=== PATIENT | female | born 1965 | race Caucasian/White ===

== ENCOUNTER 2023-11-18 01:30 | Emergency (ER) | payer MEDICAID, SELFPAY ==
[2023-11-18] VITALS (7 sets, daily range): BP systolic 112–140; BP diastolic 59–75; PULSE 72–88; RESP 18; TEMP 36.8; O2SAT 94–99
--- NOTE | 2023-11-18 01:37 | XRR_ITS ---
PROCEDURE INFORMATION: Exam: XR Left Wrist Exam date and time: 11/18/2023 1:59 AM Age: 58 years old Clinical indication: Injury or trauma; Fall; Other: Pain; Additional info: Fall, wrist pain TECHNIQUE: Imaging protocol: Radiologic exam of the left wrist. Views: 3 or more views. COMPARISON: No relevant prior studies available. FINDINGS: Bones/joints: Normal mineralization and alignment. No evidence of acute fracture or dislocation. Soft tissues: The soft tissues are within normal limits. XR/XR wrist LT min 3V* [id number] IMPRESSION: No evidence of acute fracture or dislocation.
--- NOTE | 2023-11-18 01:37 | XRR_ITS ---
PROCEDURE INFORMATION: Exam: XR Left Elbow Exam date and time: 11/18/2023 2:04 AM Age: 58 years old Clinical indication: Injury or trauma; Fall; Other: Pain; Additional info: Fall, elbow pain TECHNIQUE: Imaging protocol: Radiologic exam of the left elbow. Views: 3 or more views. COMPARISON: CR (UP EXM, ) 11/18/2023 2:01 AM FINDINGS: Bones/joints: Normal mineralization and alignment. No evidence of acute fracture or dislocation. No joint effusion Soft tissues: The soft tissues are within normal limits. XR/XR elbow LT min 3V* [id number] IMPRESSION: No evidence of acute fracture or dislocation.
--- NOTE | 2023-11-18 01:37 | XRR_ITS ---
PROCEDURE INFORMATION: Exam: XR Left Forearm Exam date and time: 11/18/2023 2:01 AM Age: 58 years old Clinical indication: Injury or trauma; Fall; Other: Pain; Additional info: Fall, arm pain TECHNIQUE: Imaging protocol: Radiologic exam of the left forearm. Views: 2 views. COMPARISON: CR (UP EXM, ) 11/18/2023 1:59 AM FINDINGS: Bones/joints: Normal mineralization and alignment. No evidence of acute fracture or dislocation. Questionable soft tissue abnormality on the volar surface of the forearm which should be correlated with physical exam. No elbow joint effusion seen. Soft tissues: See Bones/joints finding. XR/XR forearm LT 2V [id number] IMPRESSION: No evidence of acute fracture or dislocation.
--- NOTE | 2023-11-18 01:37 | CTR_ITS ---
PROCEDURE INFORMATION: Exam: CT Maxillofacial Without Contrast Exam date and time: 11/18/2023 1:48 AM Age: 58 years old Clinical indication: Injury or trauma; Fall; Other: Pain; Additional info: Trauamatic facial pain TECHNIQUE: Imaging protocol: Computed tomography of the face without contrast. Radiation optimization: All CT scans at this facility use at least one of these dose optimization techniques: automated exposure control; mA and/or kV adjustment per patient size (includes targeted exams where dose is matched to clinical indication); or iterative reconstruction. COMPARISON: CT head wo con* [id number] 11/18/2023 1:48 AM RADIATION DOSE METRICS: Total DLP (mGy-cm): 598.1 FINDINGS: Orbital cavities: Orbits are normal. Globes are unremarkable. Paranasal sinuses: Normal. No air-fluid levels. Bones: No evidence of facial fracture. Soft tissues: Moderate right supraorbital soft tissue swelling. CT/CT facial bones wo con* [id number] IMPRESSION: No evidence of facial fracture.
--- NOTE | 2023-11-18 01:37 | CTR_ITS ---
PROCEDURE INFORMATION: Exam: CT Head Without Contrast Exam date and time: 11/18/2023 1:48 AM Age: 58 years old Clinical indication: Injury or trauma; Fall; Other: Pain; Additional info: Fall, head injury TECHNIQUE: Imaging protocol: Computed tomography of the head without contrast. Radiation optimization: All CT scans at this facility use at least one of these dose optimization techniques: automated exposure control; mA and/or kV adjustment per patient size (includes targeted exams where dose is matched to clinical indication); or iterative reconstruction. COMPARISON: MR head wo/w con [id number] 12/22/2018 12:12 PM RADIATION DOSE METRICS: Total DLP (mGy-cm): 885.2 FINDINGS: Brain: There is mild cerebral atrophy. There are mild deep white matter microangiopathic ischemic changes. No acute hemorrhage is identified. No mass or mass effect is identified. Moderate [id number]-[id number]-prbv-left frontal encephalomalacia, stable compared to prior MRs. Cerebral ventricles: The ventricles are prominent secondary to atrophy. Paranasal sinuses: The paranasal sinuses are clear. Mastoid air cells: The mastoid air cells are clear. Bones: No acute osseous abnormalities are seen. Soft tissues: Moderate right periorbital soft tissue swelling. CT/CT head wo con* [id number] IMPRESSION: 1. No acute intracranial pathology. 2. Senescent changes.
--- NOTE | 2023-11-18 01:39 | ED_ITS ---
HPI - Seizure 2 General: Chief Complaint: Seizure Stated Complaint: SEIZURE Time Seen by Provider: 11/18/23 01:32 History of Present Illness: HPI Narrative: 58-year-old female with a history of sei zure disorder who presents to the emergency room after having a seizure tonight. Says this happens occasionally. Said it was a brief seizure. She fell. Hit her head. She has pain on her left forehead and cheek. She is on a blood thinner. She also has pain in her left arm from her elbow to her wrist. Some bruising around her wrist. Currently she has no altered mental status. No focal motor deficits. No increased work of breathing. No shortness of breath. No chest pain. No abdominal pain. No nausea or vomiting. No recent cough or fevers. Review of Systems 2 Narrative: Constitutional symptoms: Negative except as documented in HPI. Skin symptoms: Negative except as documented in HPI. Eye symptoms: Negative except as documented in HPI. ENMT symptoms: Negative except as documented in HPI. Respiratory symptoms: Negative except as documented in HPI. Cardiovascular symptoms: Negative except as documented in HPI. Gastrointestinal symptoms: Negative except as documented in HPI. Genitourinary symptoms: Negative except as documented in HPI. Musculoskeletal symptoms: Negative except as documented in HPI. Neurologic symptoms: Negative except as documented in HPI. Psychiatric symptoms: Negative except as documented in HPI. Endocrine symptoms: Negative except as documented in HPI. Physical Exam 2 Narrative: EXAM NARRATIVE: General: Alert, no acute distress. Skin: Warm, dry. Head: Normocephalic, bruising of the right forehead and right cheek. Neck: Supple, trachea midline. Eye: Extraocular movements are intact. Ears, nose, mouth and throat: mucosa moist. Cardiovascular: Regular, Normal peripheral perfusion. Respiratory: Lungs are clear to auscultation, respirations are non-labored, breath sounds are equal, Symmetrical chest wall expansion. Gastrointestinal: Soft, Nontender, Non distended, Normal bowel sounds. Musculoskeletal: No obvious deformity but she does have some swelling of her left wrist and elbow. Neurological: Alert and oriented, No focal neurological deficit observed. Psychiatric: Cooperative, appropriate mood & affect. Course 2 Vital Signs: Vital signs: Vital Signs Temperature 98.2 F 11/18/23 01:32 Pulse Rate 77 11/18/23 01:32 Respiratory Rate 18 06/06/24 01:32 Blood Pressure 140/75 06/06/24 01:32 Pulse Oximetry 98 11/18/23 01:32 Oxygen Delivery Me thod Room Air 11/18/23 01:32 MDM - Seizure MDM Narrative Medical decision making narrative: Medical decision making: Differential diagnosis for this patient with a complaint of seizure like activity would include but not be limited to, and based on the above HPI, review of systems and physical exam: seizure, DT's, alcohol withdrawal, brain malignancy, pseudo-seizure, syncope. Orders placed to evaluate differential diagnosis based on the above differential, HPI and physical exam Lab Review: Laboratory results were reviewed and interpreted by myself the emergency room physician Patient has mild lactic acidosis. Otherwise lab work is fairly normal. This to be expected with a seizure. I reviewed the patient's medical record. Reexamination: Patient remained stable. No further seizure activities. No altered mental status. No increased work of breathing. CT head: No acute intracranial process. no intracranial hemorrhage, no evidence of infarct. no evidence of acute fracture.This was reviewed and interpreted by myself the ER physician. CT of the facial bones: No evidence of fracture. This was reviewed and interpreted by myself the emergency room physician. I also reviewed the radiology report. X-ray of the elbow, forearm and wrist show no acute fractures or dislocations. This was reviewed and interpreted by myself the emergency room physician. I also reviewed the radiology report. Assessment and plan: Seizure Head injury - Discharged home - Discussed plan with patient. Answered any questions. - Evaluation and treatment of this problem were appropriate in the emergency setting. Lab Data 11/18/23 02:14 11/18/23 02:14 Labs: Radiology Impressions Elbow X-Ray 11/18/23 01:37 IMPRESSION: No evidence of acute fracture or dislocation. Face CT 11/18/23 01:37 IMPRESSION: No evidence of facial fracture. Forearm X-Ray 11/18/23 01:37 IMPRESSION: No evidence of acute fracture or dislocation. Head CT 11/18/23 01:37 IMPRESSION: 1. No acute intracranial pathology. 2. Senescent changes. Wrist X-Ray 11/18/23 01:37 IMPRESSION: No evidence of acute fracture or dislocation. Laboratory Results WBC 6.91 10^3/uL (3.29-11.43) 11/18/23 02:14 RBC 3.20 10^6/uL (3.85-5.65) L 11/18/23 02:14 Hgb 9.00 g/dL (11.27-16.99) L 11/18/23 02:14 Hct 28.3 % (36-47) L 11/18/23 02:14 MCV 88.4 fl (85-98) 11/18/23 02:14 MCH 28.1 pg (27-33) 11/18/23 02:14 MCHC 31.8 g/dL (30-55) 11/18/23 02:14 RDW 14.2 % (12.1-15.1) 11/18/23 02:14 Plt Count 335 10^3/cmm (157-399) 11/18/23 02:14 MPV 8.9 fL (7.4-10.4) 11/18/23 02:14 Neut % (Auto) 40.5 % 11/18/23 02:14 Lymph % (Auto) 48.3 % 11/18/23 02:14 Saunders % (Auto) 8.5 % 11/18/23 02:14 Eos % (Auto) 1.3 % 11/18/23 02:14 Baso % (Auto) 1.0 % 11/18/23 02:14 Neut # (Auto) 2.79 10^3/uL (1.8-7.7) 11/18/23 02:14 Lymph # (Auto) 3.3 10^3/uL (0.8-4.8) 11/18/23 02:14 Saunders # (Auto) 0.6 10^3/uL (0.2-0.9) 11/18/23 02:14 Eos # (Auto) 0.1 10^3/uL (0.0-0.8) 11/18/23 02:14 Baso # (Auto) 0.1 10^3/uL (0.0-0.1) 11/18/23 02:14 Nucleated RBC % (auto) 0 % 11/18/23 02:14 Nucleated RBCs # 0.0 /100WBC 11/18/23 02:14 Sodium 140 mmol/L (136-145) 11/18/23 02:14 Potassium 4.0 mmol/L (3.5-5.1) 11/18/23 02:14 Chloride 101 mmol/L (98-107) 11/18/23 02:14 Carbon Dioxide 24 mmol/L (22-29) 11/18/23 02:14 Anion Gap 19.0 (5-19) 11/18/23 02:14 BUN 18 mg/dL (6-20) 11/18/23 02:14 Creatinine 0.7 mg/dL (0.5-0.9) 11/18/23 02:14 GFR Calculation 86.2 mL/min (90-130) L 11/18/23 02:14 Glucose 203 mg/dL (65-115) H 11/18/23 02:14 Calculated Osmolality 298 mOsm/kg (285-295) H 11/18/23 02:14 Lactic Acid 3.6 mmol/L (0.5-2.2) H 11/18/23 02:14 Calcium 9.2 mg/dL (8.5-10.5) 11/18/23 02:14 Total Bilirubin 0.2 mg/dL (0.15-1.2) 11/18/23 02:14 AST 20 U/L (0-32) 11/18/23 02:14 ALT 19 U/L (0-33) 11/18/23 02:14 Alkaline Phosphatase 46 U/L (35-105) 11/18/23 02:14 Total Protein 6.8 g/dL (6.6-8.7) 11/18/23 02:14 Albumin 4.1 g/dL (3.5-5.2) 11/18/23 02:14 Globulin 2.7 g/dL (1.3-4.6) 11/18/23 02:14 All radiology interpretation(s) finalized by discharge Discharge Plan Discharge Patient Disposition: Home Clinical Impression: Epileptic seizure, Head injury, Wrist strain Condition: Stable Discharge Orders: Discharge ED (Routine); Ordered 11/18/23 Ordered By: Judy Mccormick Referrals: Mehran Chavez [Primary Care Provider] - 4-7 days Discharge Diet: Usual diet Discharge Activity: Increase activity as tolerated Patient Instructions: Epilepsy (ED) Activity Restrictions/Additional Instructions: Thank you for choosing [facility] for your healthcare needs today. Please realize this is an emergency room and that we are providing you with a medical screening exam and this may not be complete and all inclusive of all the testing and or work up that you may need to determine your ailment or severity of your illness. You have been screened and evaluated and felt safe for discharge. Health conditions do change or evolve sometimes and as such it is important that you follow up with your Primary Doctor to be re checked, 3-5 days is a general good time frame for follow up. You are always welcome to return to the ED for re assessment if your symptoms are worsening or you have new concerns Coding Level of Care Code ED [employer] Operator for Rosendo Laurent
[2023-11-18 02:19] LABS: Basophils # 0.1 10^3/uL (0.0-0.1); Eosinophils # 0.1 10^3/uL (0.0-0.8); Eosinophils % 1.3 %; Hematocrit 28.3 % (36-47); Lymphocytes # 3.3 10^3/uL (0.8-4.8); Lymphocytes % 48.3 %; Mean Corpuscular HGB Conc 31.8 g/dL (30-55); Mean Corpuscular Hemoglobin 28.1 pg (27-33); Mean Corpuscular Volume 88.4 fl (85-98); Mean Platelet Volume 8.9 fL (7.4-10.4); Monocytes # 0.6 10^3/uL (0.2-0.9); Monocytes % 8.5 %; Neutrophils # 2.79 10^3/uL (1.8-7.7); Neutrophils % 40.5 %; Nucleated Red Blood Cells % 0 %; Platelet Count 335 10^3/cmm (157-399); Red Cell Distribution Width 14.2 % (12.1-15.1); White Blood Count 6.91 10^3/uL (3.29-11.43)
[2023-11-18 02:43] LABS: Lactic Sepsis W/Reflex 3.6 mmol/L (0.5-2.2)
[2023-11-18 02:44] LABS: Alanine Aminotransferase 19 U/L (0-33); Albumin Level 4.1 g/dL (3.5-5.2); Alkaline Phosphatase 46 U/L (35-105); Aspartate Amino Transferase 20 U/L (0-32); Blood Urea Nitrogen 18 mg/dL (6-20); Calcium 9.2 mg/dL (8.5-10.5); Carbon Dioxide 24 mmol/L (22-29); Chloride 101 mmol/L (98-107); Creatinine Clr Calc Pharmacy 90.3874; Globulin 2.7 g/dL (1.3-4.6); Glomerular Filtration Rate 86.2 mL/min (90-130); Glucose 203 mg/dL (65-115); Osmolality Calculated 298 mOsm/kg (285-295); Sodium 140 mmol/L (136-145); Total Bilirubin 0.2 mg/dL (0.15-1.2); Total Protein 6.8 g/dL (6.6-8.7)
[2023-11-18 04:04] LABS: Reflex Lactate Order REFLEX LACTIC ORDERD
== END 2023-11-18 05:00 | disposition home or self-care (01) ==
PROVIDERS: Emergency Provider Emergency Medicine; PCP Family Medicine
DX: G40.909 Epilepsy, unspecified, not intractable, without status epilepticus (principal); S00.83XA Contusion of other part of head, initial encounter; Z79.01 Long term (current) use of anticoagulants; S66.912A Strain of unspecified muscle, fascia and tendon at wrist and hand level, left hand, initial encounter; W18.39XA Other fall on same level, initial encounter
CPT/HCPCS: 36415; 70450; 70486; 73080; 73090; 73110; 80053; 83605; 85025; 99284